=== PATIENT | male | born 1970 | race Caucasian/White ===

== ENCOUNTER 2019-04-04 17:53 | Inpatient (IN) ==
[2019-04-04 19:40] LABS: Basophils % 0.2 %; Hematocrit 24.9 % (37.5-50.1); Immature Granulocytes % 0.6 % (0-4); Lymphocytes # 0.9 K/mcL (0.6-4.6); Lymphocytes % 10.9 %; Mean Corpuscular HGB Conc 32.1 g/dL (31.6-35.5); Mean Corpuscular Hemoglobin 30.9 pg (28.0-33.3); Mean Corpuscular Volume 96.1 fL (83.0-100.0); Mean Platelet Volume 10.4 fL (9.4-12.4); Monocytes # 0.4 K/mcL (0.0-1.3); Monocytes % 4.8 %; Neutrophils # 7.1 K/mcL (1.6-8.9); Platelet Count 216 K/mcL (140-400); Red Blood Count 2.59 M/mcL (4.19-5.50); Red Cell Distribution Width 14.8 % (11.5-14.5); Segmented Neutrophils % 83.5 %; White Blood Count 8.5 K/mcL (4.3-11.1)
[2019-04-04 19:50] LABS: INR 1.6; Prothrombin Time 17.8 Seconds (9.4-12.1)
[2019-04-04 19:53] LABS: Activated Partial Thrombo Time 32.1 Seconds (26.0-36.0)
[2019-04-04 20:01] LABS: Alanine Aminotransferase 55 Units/L (7-52); Albumin 2.5 g/dL (3.5-5.7); Albumin/Globulin Ratio 0.5 (1.1-2.2); Alkaline Phosphatase 90 Units/L (34-104); Aspartate Amino Transferase 31 Units/L (13-39); BUN/Creatinine Ratio 13 (6-26); Bilirubin,Direct 0.1 mg/dL (0.0-0.2); Bilirubin,Indirect 0.2 mg/dL (0.0-1.2); Bilirubin,Total 0.3 mg/dL (0.3-1.0); Blood Urea Nitrogen 14 mg/dL (6-20); Carbon Dioxide 24 mEq/L (23-29); Chloride 99 mEq/L (98-107); Globulin 4.8 g/dL (2.4-3.5); Glucose 145 mg/dL (70-105); Magnesium 1.7 mg/dL (1.6-2.6); Osmolality,Calculated 275 (280-300); Phosphorous 2.3 mg/dL (2.7-4.5); Potassium 3.5 mEq/L (3.5-5.1); Sodium 131 mEq/L (136-145); Total Protein 7.3 g/dL (6.4-8.9); Troponin I < 0.03 ng/mL (< 0.04); eGFR For African Americans > 60 (> 60); eGFR For Non-African Americans > 60 (> 60)
--- NOTE | 2019-04-04 20:37 | Emergency Department Note ---
Disposition Clinical Impression: Endocarditis Qualifiers: Endocarditis type: infective Infective endocarditis organism: bacterial Chronicity: subacute Qualified Code(s): I33.0 - Acute and subacute infective endocarditis Disposition: Admitted As Inpatient Condition: Good Time of Disposition: 20:00 General Adult HPI - General Chief complaint: ED General Medical Stated complaint: Needs antibotic,MRSA Time Seen by Provider: 04/04/19 19:13 Source: patient Limitations: no limitations Nursing Notes Reviewed: Yes Vital Signs Reviewed: Yes - History of Present Illness HPI Narrative: Patient is here because he left his care home at noon for a family birthday libertarian AGAINST MEDICAL ADVICE with some type of interaction with the staff. He went to his family's event that he went back to the care home and they said he was not allowed to the anterior the care home. He was signed out against advice reportedly. He left [facility] yesterday evening at some point at which time he had a last dose of vancomycin to his left arm PICC line which she is being treated for endocarditis. He otherwise feels well at this time he denies fever nausea vomiting diarrhea. His vital signs are table stabilized men tation is normal Onset (ago): hour(s) Pain Scale: 0 Consistency: constant Improves with: nothing Worsens with: nothing Associated symptoms: Reports: denies other symptoms. Denies: chest pain, cough, diaphoresis, malaise, nausea/vomiting - Related Data Home Medications Medication Instructions Recorded Confirmed Escitalopram [Lexapro] 20 mg PO HS 03/18/19 04/04/19 Quetiapine Fumarate [SEROquel] 450 mg PO HS 03/18/19 04/04/19 Alprazolam [Xanax] 1 mg PO 1500 04/04/19 04/04/19 Alprazolam [Xanax] 2 mg PO 0900,2100 04/04/19 04/04/19 BuPROPion SR (12 HR) [Wellbutrin 150 mg PO QAM 04/04/19 04/04/19 SR] Gabapentin [Neurontin] 400 mg PO 0900,1700 04/04/19 04/04/19 Gabapentin [Neurontin] 800 mg PO HS 04/04/19 04/04/19 Allergies Allergy/AdvReac Type Severity Reaction Status Date / Time Buspirone [From BuSpar] Allergy Itching Verified 05/07/15 16:01 codeine Allergy Itching Verified 05/07/15 16:01 infliximab [From Remicade] Allergy See Verified 06/30/15 19:36 Comments methadone [Methadone] Allergy See Verified 06/30/15 19:36 Comments Constitutional: Reports: weakness Eyes: Denies: eye pain, eye discharge, vision change ENT ED: Denies: ear pain, throat pain, dental pain, hearing loss, epistaxis, congestion, dysphagia Cardiovascular: Denies: chest pain, palpitations, dyspnea on exertion, edema, syncope Respiratory: Denies: cough, dyspnea, wheezes, hemoptysis, stridor Gastrointestinal: Denies: abdominal pain, nausea, vomiting, diarrhea, constipation, hematemesis, melena, hematochezia Genitourinary: Denies: urgency, dysuria, frequency, hematuria Musculoskeletal: Denies: back pain, neck pain, arthralgia, myalgia Integumentary: Denies: rash, abrasion, lesions Neurological: Denies: headache, weakness, numbness, paresthesias, confusion, abnormal gait, vertigo Psychiatric: Denies: anxiety, depression, suicidal thoughts, homicidal thoughts, auditory hallucinations, visual hallucinations Endocrine: Denies: fatigue Hematological/Lymphatic: Denies: easy bleeding, easy bruising Allergic/Immunologic: Denies: facial swelling, urticaria Past Medical History - Past Medical History Medical history: Reports: COPD, kidney stones Psychiatric history: Reports: anxiety, depression - Social History Smoking Status: Current every day smoker Alcohol use: Reports: none Drug use: Reports: none Physical Exam - General Limitations: no limitations General appearance: alert - Head Head exam: atraumatic, normocephalic, normal inspection - Eye Eye exam: Present: normal appearance, PERRL, EOMI - Expanded Eye Exam Pupils: Left: reactive - ENT ENT exam: normal exam, normal oropharynx, mucous membranes moist - Expanded ENT Exam External ear exam: Present: normal external inspection Mouth exam: Present: normal external inspection Teeth exam: Present: normal inspection Throat exam: Present: normal inspection - Neck Neck exam: Present: normal inspection, full ROM, trachea midline - Chest Chest inspection: Present: normal inspection, symmetric chest wall rise - Respiratory Respiratory exam: Present: normal lung sounds bilaterally - Cardiovascular Cardiovascular exam: Present: normal rhythm, tachycardia - Abdominal Exam Abdominal exam: Present: soft, Non-Tender. Absent: tenderness, distention, guarding, rebound, rigidity - Extremities Exam Extremities exam: Present: normal inspection, full ROM. Absent: tenderness, pedal edema - Expanded Upper Extremity Exam Shoulder exam: Present: normal inspection, full ROM Arm exam: Present: normal inspection, full ROM Elbow exam: Present: normal inspection, full ROM Forearm/Wrist exam: Present: normal inspection, full ROM Hand exam: Present: normal inspection, full ROM Vascular exam: Normal: capillary refill, radial pulse - Expanded Lower Extremity Exam Hip/Pelvis exam: Present: normal inspection, full ROM Upper leg exam: Present: normal inspection, full ROM Knee exam: Present: normal inspection, full ROM Lower leg exam: Present: normal inspection, full ROM Ankle exam: Present: normal inspection, full ROM Foot/toe exam: Present: normal inspection, full ROM Neurovascular/Tendon exam: Absent: motor deficit, sensory deficit, tendon deficit - Back Exam Back exam: Present: normal inspection, full ROM. Absent: tenderness - Neurological Exam Neurological exam: Present: alert, oriented X3 - Expanded Neurological Exam Patient oriented to: Present: person, place, time Coma Scale Eye Opening: Spontaneous Coma Scale Motor Response: Obeys Commands Coma Scale Verbal Response: Oriented Coma Scale Total: 15 - Psychiatric Psychiatric exam: Present: normal affect, normal mood - Skin Skin exam: Present: warm, dry, intact, normal color Course Course Narrative: I spoke with [facility] at approximately 7:30. They are attempting to contact the physician of record for this patient but the staff was unable to tell me with physician is in the country or out of the country or available to discuss the patient's case with me and determine test were not he will be allowed back to care home. Reportedly he signed out AMA. Medically stable this time. Hemoglobin of 8 is noted and unable to transfer the patient is not aware of his last hemoglobin [facility]. Patient was questioned about his hemoglobin. He does remember the staff at [facility] mentioning something about his blood count being low and they started him on iron. He has had some dark stool since starting his iron. He has no abdominal pain. He has no epigastric pain. He has no vomiting. He does have underlying history of hepatitis C. He does not remember being treated for gastr itis prior in his life Vital Signs Temperature 100.3 F H 04/04/19 18:17 Pulse Rate 116 04/04/19 18:17 Respiratory Rate 18 04/04/19 18:17 Blood Pressure 102/53 04/04/19 18:17 O2 Sat by Pulse Oximetry 97 04/04/19 18:17 Temperature 98.1 F 04/05/19 10:17 Pulse Rate 90 04/05/19 10:17 Respiratory Rate 15 04/05/19 10:17 Blood Pressure 110/52 04/05/19 10:17 O2 Sat by Pulse Oximetry 96 04/05/19 10:17 Oxygen Delivery Oxygen Delivery Room Air Medical Decision Making - Lab Data Result diagrams: 04/05/19 03:49 04/05/19 03:49 Lab Results 04/04/19 04/04/19 04/04/19 Range/Units 19:21 19:21 19:24 WBC 8.5 (4.3-11.1) K/mcL RBC 2.59 L (4.19-5.50) M/mcL Hgb 8.0 L (12.9-16.9) g/dL Hct 24.9 L (37.5-50.1) % MCV 96.1 (83.0-100.0) fL MCH 30.9 (28.0-33.3) pg MCHC 32.1 (31.6-35.5) g/dL RDW 14.8 H (11.5-14.5) % Plt Count 216 (140-400) K/mcL MPV 10.4 (9.4-12.4) fL Immature Gran % 0.6 (0-4) % Seg Neutrophils % 83.5 % Lymphocytes % 10.9 % Monocytes % 4.8 % Eosinophils % 0.0 % Basophils % 0.2 % Neutrophils # 7.1 (1.6-8.9) K/mcL Lymphocytes # 0.9 (0.6-4.6) K/mcL Monocytes # 0.4 (0.0-1.3) K/mcL Eosinophils # 0.0 (0.0-0.6) K/mcL Basophils # 0.0 (0.0-0.2) K/mcL PT 17.8 H (9.4-12.1) Seconds INR 1.6 APTT 32.1 (26.0-36.0) Seconds Sodium 131 L (136-145) mEq/L Potassium 3.5 (3.5-5.1) mEq/L Chloride 99 (98-107) mEq/L Carbon Dioxide 24 (23-29) mEq/L BUN 14 (6-20) mg/dL Creatinine 1.09 (0.70-1.30) mg/dL Est GFR ( Amer) > 60 (> 60) Est GFR (Non-Af Amer) > 60 (> 60) BUN/Creatinine Ratio 13 (6-26) Glucose 145 H (70-105) mg/dL Calculated Osmolality 275 L (280-300) Lactic Acid (0.5-2.2) mmol/L Calcium 8.0 L (8.6-10.3) mg/dL Phosphorus 2.3 L (2.7-4.5) mg/dL Magnesium 1.7 (1.6-2.6) mg/dL Total Bilirubin 0.3 (0.3-1.0) mg/dL Direct Bilirubin 0.1 (0.0-0.2) mg/dL Indirect Bilirubin 0.2 (0.0-1.2) mg/dL AST 31 (13-39) Units/L ALT 55 H (7-52) Units/L Alkaline Phosphatase 90 (34-104) Units/L Troponin I < 0.03 (< 0.04) ng/mL Serum Total Protein 7.3 (6.4-8.9) g/dL Albumin 2.5 L (3.5-5.7) g/dL Globulin 4.8 H (2.4-3.5) g/dL Albumin/Globulin Ratio 0.5 L (1.1-2.2) 04/04/19 Range/Units 19:24 WBC (4.3-11.1) K/mcL RBC (4.19-5.50) M/mcL Hgb (12.9-16.9) g/dL Hct (37.5-50.1) % MCV (83.0-100.0) fL MCH (28.0-33.3) pg MCHC (31.6-35.5) g/dL RDW (11.5-14.5) % Plt Count (140-400) K/mcL MPV (9.4-12.4) fL Immature Gran % (0-4) % Seg Neutrophils % % Lymphocytes % % Monocytes % % Eosinophils % % Basophils % % Neutrophils # (1.6-8.9) K/mcL Lymphocytes # (0.6-4.6) K/mcL Monocytes # (0.0-1.3) K/mcL Eosinophils # (0.0-0.6) K/mcL Basophils # (0.0-0.2) K/mcL PT (9.4-12.1) Seconds INR APTT (26.0-36.0) Seconds Sodium (136-145) mEq/L Potassium (3.5-5.1) mEq/L Chloride (98-107) mEq/L Carbon Dioxide (23-29) mEq/L BUN (6-20) mg/dL Creatinine (0.70-1.30) mg/dL Est GFR ( Amer) (> 60) Est GFR (Non-Af Amer) (> 60) BUN/Creatinine Ratio (6-26) Glucose (70-105) mg/dL Calculated Osmolality (280-300) Lactic Acid 1.8 (0.5-2.2) mmol/L Calcium (8.6-10.3) mg/dL Phosphorus (2.7-4.5) mg/dL Magnesium (1.6-2.6) mg/dL Total Bilirubin (0.3-1.0) mg/dL Direct Bilirubin (0.0-0.2) mg/dL Indirect Bilirubin (0.0-1.2) mg/dL AST (13-39) Units/L ALT (7-52) Units/L Alkaline Phosphatase (34-104) Units/L Troponin I (< 0.04) ng/mL Serum Total Protein (6.4-8.9) g/dL Albumin (3.5-5.7) g/dL Globulin (2.4-3.5) g/dL Albumin/Globulin Ratio (1.1-2.2)
[2019-04-04] MEDS ORDERED: Pantoprazole 40 MG VIAL IVP ONE (21:05)
[2019-04-05] MEDS ORDERED: *HR* Norepinephrine 4 MG/4 ML VIAL IVC ONE (00:19)
[2019-04-05] MEDS ORDERED: Aminoglycoside Consult 1 EACH MC ONE (00:19)
[2019-04-05] MEDS ORDERED: D5% in Water 250 ML IV BAG IV ONE (00:19)
[2019-04-05 00:42] LABS: Amphetamine Screen,Urine Negative ng/mL (Cutoff=1000); Barbiturate Screen,Urine Negative ng/mL (Cutoff=200); Benzodiazepines Screen,Urine Negative ng/mL (Cutoff=200); Cannabinoid Screen,Urine Negative ng/mL (Cutoff = 50); Cocaine Screen,Urine Negative ng/mL (Cutoff= 300); Opiate Screen,Urine Negative ng/mL (Cutoff=300); Phencyclidine Screen,Urine Negative ng/mL (Cutoff=25)
[2019-04-05] MEDS ORDERED: Acetaminophen 325 MG TABLET PO ONE (02:17)
[2019-04-05] MEDS ORDERED: Acetaminophen 325 MG TABLET PO PRN (02:40)
[2019-04-05] MEDS ORDERED: *HR* Promethazine 25 MG/ML VIAL IVP PRN (02:40)
[2019-04-05] MEDS ORDERED: Naloxone 0.4 MG/ML INJ IVP PRN (02:40)
[2019-04-05] MEDS: 0.9 % Sodium Chloride 1,000 ML IVC SCH ×2 (03:52→17:12)
[2019-04-05 04:16] LABS: Basophils % 0.3 %; Eosinophils % 0.3 %; Hematocrit 23.2 % (37.5-50.1); Hemoglobin 7.6 g/dL (12.9-16.9); Immature Granulocytes % 0.4 % (0-4); Lymphocytes # 0.8 K/mcL (0.6-4.6); Lymphocytes % 11.7 %; Mean Corpuscular HGB Conc 32.8 g/dL (31.6-35.5); Mean Corpuscular Hemoglobin 31.4 pg (28.0-33.3); Mean Corpuscular Volume 95.9 fL (83.0-100.0); Mean Platelet Volume 10.2 fL (9.4-12.4); Monocytes # 0.5 K/mcL (0.0-1.3); Monocytes % 6.7 %; Neutrophils # 5.7 K/mcL (1.6-8.9); Platelet Count 218 K/mcL (140-400); Red Blood Count 2.42 M/mcL (4.19-5.50); Red Cell Distribution Width 14.7 % (11.5-14.5); Segmented Neutrophils % 80.6 %
[2019-04-05 04:31] LABS: Alanine Aminotransferase 55 Units/L (7-52); Albumin 2.2 g/dL (3.5-5.7); Albumin/Globulin Ratio 0.5 (1.1-2.2); Alkaline Phosphatase 90 Units/L (34-104); Aspartate Amino Transferase 35 Units/L (13-39); BUN/Creatinine Ratio 14 (6-26); Bilirubin,Total 0.3 mg/dL (0.3-1.0); Blood Urea Nitrogen 14 mg/dL (6-20); Calcium 7.8 mg/dL (8.6-10.3); Carbon Dioxide 24 mEq/L (23-29); Chloride 101 mEq/L (98-107); Globulin 4.5 g/dL (2.4-3.5); Glucose 115 mg/dL (70-105); Magnesium 1.6 mg/dL (1.6-2.6); Osmolality,Calculated 273 (280-300); Potassium 3.3 mEq/L (3.5-5.1); Sodium 131 mEq/L (136-145); Total Protein 6.7 g/dL (6.4-8.9); eGFR For African Americans > 60 (> 60); eGFR For Non-African Americans > 60 (> 60)
--- NOTE | 2019-04-05 04:31 | Internal Med History&Physical ---
Date of Encounter: 04/05/19 Time of Encounter: 02:05 Internal Medicine - H&P: HPI Chief complaint: endocarditis Admitted From: Emergency Dept Plans for Post Hospital Care: Transfer Long Term Facility History of present illness: Mr. Yancey is a 48 year old [facility] and need for ongoing treatment. He was recently discharged from [facility] in [place] just a few days ago. He was discharged to a local [facility] where he signed out from [facility] AGAINST MEDICAL ADVICE just yesterday. He returned to [facility] today trying to be readmitted there. However, he was turned away and recommended to go to ER because he signed out AMA and need ongoing medical care. He therefore came to ER where he was seen and evaluated for ongoing care of his endocarditis. Upon my assessment of the patient on the floor, he spiked a fever and was having active rigors and chills. He denies any chest pain, shortness of breath, but he has had some nausea and vomiting. He denies any hemoptysis, wheezing, productive cough, or any significant chest pain. He has been on vancomycin for last couple weeks for his endocarditis. Unfortunately, I do not have any records from [place]. Presently, patient appears ill but nontoxic. 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 He states he does not take any active drugs now. Past Med Surg Social Fam HX - Past Medical History Attestation: Yes The following information was validated with the patient. Source: patient, old records reviewed (very limited old records) Medical history: COPD, kidney stones Additional medical history: MRSA, pericarditis, IV drug use Psychiatric history: anxiety, depression - Past Surgical History Additional surgical history: back surg - Social History Smoking Status: Current every day smoker Packs per day: 1/2 Smokeless Tobacco Status: No Alcohol use: none Drug use: opiates, IV Drug Use Current living situation: [facility] Activity Level: Independent ambulation - Family History Mother History Unknown: Yes Father History Unknown: Yes Internal Medicine - H&P: Meds Escitalopram [Lexapro] 20 mg PO HS 03/18/19 [History] Quetiapine Fumarate [SEROquel] 450 mg PO HS 03/18/19 [History] Alprazolam [Xanax] 1 mg PO 1500 04/04/19 [History] Alprazolam [Xanax] 2 mg PO 0900,2100 04/04/19 [History] BuPROPion SR (12 HR) [Wellbutrin SR] 150 mg PO QAM 04/04/19 [History] Gabapentin [Neurontin] 400 mg PO 0900,1700 04/04/19 [History] Gabapentin [Neurontin] 800 mg PO HS 04/04/19 [History] Allergy/AdvReac Type Severity Reaction Status Date / Time Buspirone [From BuSpar] Allergy Itching Verified 05/07/15 16:01 codeine Allergy Itching Verified 05/07/15 16:01 infliximab [From Remicade] Allergy See Verified 06/30/15 19:36 Comments methadone [Methadone] Allergy See Verified 06/30/15 19:36 Comments - Constitutional Constitutional: chills, fatigue, fever(s), no night sweats - EENT Eyes: no blurry vision, no change in vision Ears: no ear pain, no tinnitus Nose, mouth and throat: no nasal congestion, no sinus pressure, no sore throat - Cardiovascular Cardiovascular ROS IM: chest pain, no dyspnea, no dyspnea on exertion, no orthopnea, no paroxysmal nocturnal dyspnea - Respiratory Respiratory: no cough, no hemoptysis, no chest congestion, no excessive phlegm production, no change in phlegm color - Gastrointestinal Gastrointestinal: heartburn, nausea, vomiting, no abdominal pain, no diarrhea, no hematemesis, no hematochezia, no melena - Genitourinary Genitourinary ROS male: no dysuria, no flank pain, no hematuria - Musculoskeletal Musculoskeletal ROS IM: no arthralgias, no back pain - Integumentary Integumentary IM: no rash, no jaundice - Neurological Neurological ROS: no disequilibrium, no dizziness, no focal weakness, no frequent falls, no headache(s) - Psychiatric Psychiatric: no anxiety, no depression - Endocrine Endocrine IM: no cold intolerance, no heat intolerance, no polydipsia, no polyuria - Allergic/Immunologic Allergic/Immunologic: no wheezing, no GI upset with certain foods - Constitutional Vitals: Temp Pulse Resp BP Pulse Ox 100.3 F H 114 18 111/62 95 04/05/19 02:07 04/05/19 02:07 04/05/19 02:07 04/05/19 02:07 04/05/19 02:07 General appearance: Present: cachectic, cooperative, A&O X 3, answers questions appropriately Exam: acutely ill; non-toxic - Head Head exam: Present: atraumatic, normal inspection - Eye Eye exam: Present: EOMI, PERRL. Absent: scleral icterus Pupils: Present: normal accommodation - ENT ENT exam: Present: mucous membranes dry, normal exam, normal oropharynx Additional comments: edentulous - Neck Neck exam general surgery: Present: full ROM, supple, trachea midline. Absent: lymphadenopathy, tenderness, nuchal rigidity, thyromegaly - Respiratory Respiratory exam: Present: CTAB. Absent: chest wall tenderness, rales, respiratory distress, rhonchi, wheezes - Cardiovascular Cardiovascular exam: Present: RRR, +S1, +S2, systolic murmur. Absent: diastolic murmur - GI/Abdominal GI/Abdominal exam: Present: normal bowel sounds, soft. Absent: guarding, hepatomegaly, mass, rebound, splenomegaly - Extremities Exam Extremities exam: Present: full ROM, warm. Absent: calf tenderness, joint swelling, pedal edema, tenderness - Back Exam Back exam: Absent: CVA tenderness (L), CVA tenderness (R) - Neurological Exam Neurological exam: Present: alert, CN II-XII intact, oriented X3, no focal deficits, strengths equal and symetr throughout - Psychiatric Psychiatric exam: Present: normal affect, normal mood - Skin Skin exam: Present: dry, intact, warm. Absent: abrasion Internal Med - H&P Results - Labs CBC & Chem 7: 04/04/19 19:21 04/04/19 19:21 Labs: Short CBC 04/04/19 Range/Units 19:21 WBC 8.5 (4.3-11.1) K/mcL Hgb 8.0 L (12.9-16.9) g/dL Hct 24.9 L (37.5-50.1) % Plt Count 216 (140-400) K/mcL Neutrophils # 7.1 (1.6-8.9) K/mcL BMP 04/04/19 19:21 Sodium 131 L Potassium 3.5 Chloride 99 Carbon Dioxide 24 BUN 14 Creatinine 1.09 Glucose 145 H Calcium 8.0 L Cardiac Enzymes 04/04/19 Range/Units 19:21 Troponin I < 0.03 (< 0.04) ng/mL Liver Function 04/04/19 Range/Units 19:21 Total Bilirubin 0.3 (0.3-1.0) mg/dL Direct Bilirubin 0.1 (0.0-0.2) mg/dL AST 31 (13-39) Units/L ALT 55 H (7-52) Units/L Alkaline Phosphatase 90 (34-104) Units/L Albumin 2.5 L (3.5-5.7) g/dL - EKG Data -: EKG Interpreted by Myself - EKG Data Prior EKG available for review: no EKG comments: 04/05/19 04:43 Sinus tachycardia with no acute changes - Assessment and Plan (1) Endocarditis Current Visit: Yes Status: Acute Assessment and plan: 1. Blood cultures orderd. 2. Vancomycin and Zosyn ordered to be scheduled. 3. ECHO ordered. 4. Monitor on telemetry. 5. Request for old records from [facility]. Qualifiers: Endocarditis type: infective Infective endocarditis organism: bacterial Chronicity: subacute Qualified Code(s): I33.0 - Acute and subacute infective endocarditis (2) Anemia Current Visit: Yes Status: Acute Assessment and plan: 1. FOBT ordered. 2. Iron studies ordered -- suspect GI blood loss. 3. Consult GI for EGD. 4. Monitor H/H and transfuse PRN. Qualifiers: Anemia type: unspecified type Qualified Code(s): D64.9 - Anemia, unspecified (3) DVT prophylaxis Current Visit: Yes Status: Acute Assessment and plan: 1. Heparin SQ.
[2019-04-05 04:35] LABS: INR 1.5; Prothrombin Time 17.5 Seconds (9.4-12.1)
[2019-04-05 04:38] LABS: Activated Partial Thrombo Time 31.6 Seconds (26.0-36.0)
[2019-04-05] MEDS: Pantoprazole 40 MG VIAL IVP SCH ×2 (05:45→17:10)
[2019-04-05] MEDS ORDERED: *HR* Heparin 5,000 UNIT/ML VIAL SQ SCH (06:00)
[2019-04-05 06:39] LABS: Troponin I < 0.03 ng/mL (< 0.04)
[2019-04-05 06:48] LABS: Iron < 10 mcg/dL (65-175); Transferrin 135 mg/dL (203-362)
[2019-04-05] MEDS ORDERED: BuPROPion SR (12 HR) 150 MG TABLET PO SCH (09:00)
[2019-04-05] MEDS: Gabapentin 400 MG CAPSULE PO SCH ×2 (09:16→17:10)
[2019-04-05] MEDS: Piperacillin/Tazobactam 3.375 GM in 0.9 % Sodium Chloride Mini Bag 100 ML IVPB SCH ×2 (09:18→17:10)
[2019-04-05] MEDS: ALPRAZolam 1 MG TABLET PO SCH (09:35)
--- NOTE | 2019-04-05 14:05 | Infectious Disease Consult ---
Infectious Disease-Consult - Encounter Date/Time Date of Encounter: 04/05/19 Time of Encounter: 12:45 - Data of Consult Patient: new to practice Reason for consult: Endocarditis Consult date: 04/05/19 Requesting Physician: Zeferino Armstrong Primary Care Provider: Vasile Maguire HPI: Mr. Myers is a 48-year-old male with a past medical history of COPD, kidney stones, MRSA bacteremia, and endocarditis. He was admitted to the hospital 04/04/19 for endocarditis. We are consulted 04/05/19 for further workup and treatment recommendations for endocarditis. Briefly, the patient is a 48-year-old male with past medical history as stated above. The patient presented to the [facility] emergency department back on March 18 and was diagnosed with MRSA bacteremia. He was subsequently transferred to [facility] where he remained hospitalized. The details of his hospitalization are unclear as we do not have any records and the patient is unclear as well. I was able to call the microbiology lab at [facility] who tells me that his first set of negative blood cultures were not on 03/26/19. Apparently, he was discharged to a local extended care facility to complete his course of IV antibiotics. He states that he [place] the [place] [facility] to go to a families birthday green party and when he came back he was told he was not allowed to return so he presented to the ER for evaluation. He states that he had been told he was supposed to be off his IV vancomycin for a day due to an elevated medication level so he actually did not miss any doses. Upon arrival to the ER, he was tachycardic. Had a low-grade temperature 100.3. WBC was normal. LFTs and troponin were negative. He was started on vancomycin and Zosyn and admitted to the hospital for further evaluation. Since admission, the patient has had a MAXIMUM TEMPERATURE of 100.3. He is still intermittent tachycardic WBC and renal function remained normal. Blood cultures were obtained 2 sets are pending. He is scheduled to undergo a transthoracic echocardiogram later today. Urine drug screen was negative. Currently, the patient is on vancomycin and Zosyn. We have been asked to evaluate and make further recommendations. During my exam today, the patient is somewhat of a poor historian regarding the events of his hospitalization at [facility]. He is telling me that he was afebrile until yesterday when he came back to the hospital. He denies any fevers or chills. Denies headache, neck pain, or stiffness. Denies chest pain, shortness of breath, or cough. Denies nausea, vomiting, diarrhea, or constipation. Denies abdominal pain or urinary complaints. Denies oral thrush or skin rashes. States he has not done any drugs since before coming to the hospital in February. The patient normally lives at home with his family. He smokes about a pack of cigarettes per day. Denies alcohol use. States she was previously using IV heroin and sharing needles regularly. He states he is known hep C positive. Denies other than chronic infectious diseases. Denies recent travel outside the [facility]. - ROS Review of Systems: All systems reviewed and no additional remarkable complaints except as stated. - Results CBC & Chem 7: 04/05/19 20:45 04/05/19 20:45 - Exam Vitals: Temp Pulse Resp BP Pulse Ox 98.1 F 90 15 110/52 96 04/05/19 10:17 04/05/19 10:17 04/05/19 10:17 04/05/19 10:17 04/05/19 10:17 Exam: Head: Atraumatic, normal inspection, normocephalic. Eye: EOMI, PERRLA, no scleral icterus noted. No subconjunctival hemorrhage noted. ENT: Mucous membranes moist. No odontogenic infection noted. Neck: Normal inspection, no meningismus. Respiratory: Clear to auscultation. No rales, respiratory distress, rhonchi, or wheezes noted. Cardiovascular: Regular rhythm, tachycardic, S1 and S2 audible. No rubs or gallops. Murmur noted. GI: Soft, nondistended, normal bowel sounds. Extremities: No joint swelling, pedal edema, or tenderness noted. Back: Normal inspection. No vertebral tenderness noted. Neurological: Alert, oriented 3, no focal deficits. Psychiatric: normal affect, normal mood. Skin: Dry, intact, warm. Normal color. No rashes. No endocarditis stigmata noted. Escitalopram [Lexapro] 20 mg PO HS 03/18/19 [History] Quetiapine Fumarate [SEROquel] 450 mg PO HS 03/18/19 [History] Alprazolam [Xanax] 1 mg PO 1500 04/04/19 [History] Alprazolam [Xanax] 2 mg PO 0900,2100 04/04/19 [History] BuPROPion SR (12 HR) [Wellbutrin SR] 150 mg PO QAM 04/04/19 [History] Gabapentin [Neurontin] 400 mg PO 0900,1700 04/04/19 [History] Gabapentin [Neurontin] 800 mg PO HS 04/04/19 [History] Allergy/AdvReac Type Severity Reaction Status Date / Time Buspirone [From BuSpar] Allergy Itching Verified 05/07/15 16:01 codeine Allergy Itching Verified 05/07/15 16:01 infliximab [From Remicade] Allergy See Verified 06/30/15 19:36 Comments methadone [Methadone] Allergy See Verified 06/30/15 19:36 Comments - Assessment and Plan (1) Sepsis Current Visit: Yes Status: Acute The patient has two SIRS criteria. Etiology unclear. Likely endocarditis, but concern for additional sources as well. WBC normal. Continues to have tachycardia and intermittent fevers (Tmax 100.3). Blood cultures drawn 04/05/19 are pending x 2 sets. Currently on Vanc and Zosyn. Qualifiers: Sepsis type: sepsis due to unspecified organism Qualified Code(s): A41.9 - Sepsis, unspecified organism SNOMED Code(s): 10823351 (2) Endocarditis Current Visit: Yes Status: Acute Exact details unclear. Diagnosed at [facility]. Causative organism: MRSA. [facility] with [facility], but left AMA. Patient states he was told he didn't need any for a day because his levels were high, but not sure how accurate this is. Will ask nursing to request records from [facility]. Currently on Vanc and Zosyn. Qualifiers: Endocarditis type: infective Infective endocarditis organism: bacterial Chronicity: subacute Qualified Code(s): I33.0 - Acute and subacute infective endocarditis SNOMED Code(s): 90255364 (3) Anemia Current Visit: Yes Status: Acute Etiology unclear. Hgb 8 on admission, down to 7.6 this morning. Further workup and management per the primary team. Qualifiers: Anemia type: unspecified type Qualified Code(s): D64.9 - Anemia, unspecified SNOMED Code(s): 775866835 (4) H/O intravenous drug use in remission Current Visit: Yes Status: Acute Reports history of Heroine use with sharing needles. Known history of Hepatitis C. Will check HIV and Hep B serologies. SNOMED Code(s): 03861331144533138, 41943804218145201 - Recommendations Recommendations: Review of systems negative for additional infectious source. Await blood cultures to finalize. Request records from [facility]. Anemia workup and treatment per the primary team Continue Vancomycin IV. Pharmacy to dose. Goal trough ~15. Dosing discussed with Charly Schreiber. Planning to get trough tonight before 2100 dose to see where we are with vanc levels. Continue Zosyn 3.375 grams IV Q8H. Duration of treatment depends on the clinical picture. Monitor renal function and for drug toxicity and dose-adjust antibiotics. Past Med Surg Social Fam HX - Past Medical History Attestation: Yes The following information was validated with the patient. Source: patient, old records reviewed, nursing notes reviewed Medical history: COPD, kidney stones Additional medical history: MRSA, pericarditis, IV drug use Psychiatric history: anxiety, depression - Past Surgical History Additional surgical history: back surg - Social History Smoking Status: Current every day smoker Packs per day: 1/2 Smokeless Tobacco Status: No Alcohol use: none Drug use: opiates, IV Drug Use Occupational status: unemployed Current living situation: Home, With Family Activity Level: Independent ambulation Recent Out of Country Travel Within the Last 8 Weeks: No Exposure or Possible Exposure to Illness During Travel: No - Family History Mother History Unknown: Yes Father History Unknown: Yes Consult Discharge Plan - Plan Referrals: Johana Skelton DO [Primary Care Provider] - - Attending Attestation I have personally performed a face to face evaluation on this patient. I have reviewed and agree with the care plan. History and Exam by me shows: This is an addendum to initial report dictated by Ashley Mary CNP, please refer to Ashley's note for full details. Agree with above HIP, ROS and PE findings. Assessment and Plan: 1. Sepsis 2. Endocarditis with MRSA (not sure which valve, will ask for records) 3. AMS 4. H/O IVDU 5. Serratia Bacteremia 6. pulmonary consildation/pneumonia 7. ACS 8. Severe pulmonary HTN Recommendations: continue vancomycin; requested vanc level; goal vancomycin trough around 20 stop zosyn start meropenem monitor labs await cardiology recommendations await pulmonary and CTS recommendations
[2019-04-05] MEDS ORDERED: ALPRAZolam 1 MG TABLET PO SCH (15:00)
[2019-04-05] MEDS ORDERED: 0.9 % Sodium Chloride 500 ML IVC ONE (16:20)
[2019-04-05 16:21] LABS: Hematocrit 25.7 % (37.5-50.1); Hemoglobin 8.2 g/dL (12.9-16.9)
[2019-04-05] MEDS ORDERED: Nitroglycerin 0.4 MG TAB.SUBL SL ONE (16:26)
[2019-04-05 17:58] LABS: Acinetobacter baumannii by PCR Not Detected (Not Detect); Enterococcus by PCR Not Detected (Not Detect); Staphylococcus aureus by PCR Not Detected (Not Detect); Staphylococcus by PCR Not Detected (Not Detect); Streptococcus agalactiae(B)PCR Not Detected (Not Detect); Streptococcus by PCR Not Detected (Not Detect); Streptococcus pneumoniae PCR Not Detected (Not Detect); Streptococcus pyogenes (A) PCR Not Detected (Not Detect); blaKPC Carbapenem-Resist Gene Not Detected (Not Detect); mecA Methicillin-Resist Gene Not Detected (Not Detect); vanA/B Vancomycin-Resist Genes Not Detected (Not Detect)
[2019-04-05 17:59] LABS: Candida albicans by PCR Not Detected (Not Detect); Candida glabrata by PCR Not Detected (Not Detect); Candida krusei by PCR Not Detected (Not Detect); Candida parapsilosis by PCR Not Detected (Not Detect); Candida tropicalis by PCR Not Detected (Not Detect); Enterobacter cloacae Cmplx PCR Not Detected (Not Detect); Escherichia coli by PCR Not Detected (Not Detect); Klebsiella oxytoca by PCR Not Detected (Not Detect); Klebsiella pneumoniae by PCR Not Detected (Not Detect); Proteus by PCR Not Detected (Not Detect); Pseudomonas aeruginosa by PCR Not Detected (Not Detect); Serratia marcescens by PCR DETECTED (Not Detect)
[2019-04-05] MEDS ORDERED: SODIUM CHLORIDE MINI 0.9% IVP SCH ×2 (18:09→18:50)
[2019-04-05] MEDS ORDERED: MEROPENEM IVP SCH ×2 (18:09→18:50)
[2019-04-05] MEDS ORDERED: Isovue-370 500 ML BOTTLE IVP ONE ×3 (18:50→22:18)
--- NOTE | 2019-04-05 19:19 | Event Note ---
Date of Encounter: 04/05/19 Time of Encounter: 11:00 Patient was admitted to the hospital due to history of endocarditis after he left his halfway AMA for a birthday republican in his halfway discharge him and would not accept him. Patient has finished 2 weeks of treatment with IV vancomycin however/for him. Blood cultures grew Serratia and infectious disease was consulted and they recommended meropenem along with vancomycin awaiting results of the blood cultures. This afternoon, patient developed substernal chest pain with tachycardia and hypertension. 500 ml bolus was given with significant improvement in his blood pressure. EKG was done as well and showed ST depression in the lateral leads, this was discussed with Dr. Nagy over the phone who said that this is C depression is secondary to his tachycardia. EKG done 30 minutes later showed improvement and utilization of his ST depression. First troponin was negative, second troponin is at 10 PM. Patient also has tachypnea and he was placed on 4 L of oxygen due to hypoxia. D-dimer was checked and it was elevated. CT chest with contrast is ordered and the results are pending. Sounds was given to the night team. Suspicion is high for PE versus pulmonary embolism. Regarding his anemia, patient had no signs of bleeding. His hemoglobin improved slightly from admission. FOBT is still pending.
[2019-04-05] MEDS ORDERED: Norepinephrine 4 MG in D5% in Water 250 ML IVC SCH (20:30)
[2019-04-05] MEDS ORDERED: Gabapentin 400 MG CAPSULE PO SCH (21:00)
--- NOTE | 2019-04-05 21:01 | Event Note ---
Date of Encounter: 04/06/19 Time of Encounter: 20:55 Rapid Response called at approximately 1945. Patient was hypotensive with decreased mental status. Patient was assess and was able to answer questions, was AOx2 which was decreased from presentation. Vitals shows tachycardia in 110s and BP of 70s/40s taken manually. Patient had received fluid bolus of 500 mL earlier in the day which reportedly did help. Normal saline was running at 999/hr however blood pressure not improved after recheck. Levophed was ordered and patient will be transferred to ICU. Patient has PICC in place already. Repeat labs ordered. Update: received report from custodial officer documentation coordinator who read his echocardiogram showing severe/complete aortic insufficiency due to vegetation and instruction of leaflet. Trainman recommended transfer to tertiary care center as soon as possible. Resuscitative measures were pursued including transfusion of packed red blood cells, vasopressors. I did speak to our on-call cardiothoracic surgeon who recommended changing from levophed to epinephrine to decrease vascular resistance. We did contact multiple tertiary centers requesting transfer, please see discharge summary of same date. CTA dissection study was also obtained, please see separate report. Patient will be transferred to [facility].
[2019-04-05 21:16] LABS: Basophils % 0.1 %; Eosinophils % 0.1 %; Hematocrit 22.3 % (37.5-50.1); Hematocrit 22.6 % (37.5-50.1); Hemoglobin 7.1 g/dL (12.9-16.9); Hemoglobin 7.2 g/dL (12.9-16.9); Immature Granulocytes % 0.6 % (0-4); Lymphocytes % 9.1 %; Mean Corpuscular HGB Conc 31.8 g/dL (31.6-35.5); Mean Corpuscular Hemoglobin 31.4 pg (28.0-33.3); Mean Corpuscular Volume 98.7 fL (83.0-100.0); Mean Platelet Volume 10.3 fL (9.4-12.4); Monocytes # 0.6 K/mcL (0.0-1.3); Monocytes % 5.7 %; Platelet Count 199 K/mcL (140-400); Red Blood Count 2.26 M/mcL (4.19-5.50); Segmented Neutrophils % 84.4 %
[2019-04-05 21:20] LABS: White Blood Count 10.6 K/mcL (4.3-11.1)
[2019-04-05] MEDS ORDERED: 0.9 % Sodium Chloride 1,000 ML IVC ONE (21:21)
[2019-04-05 21:41] LABS: Chloride 106 mEq/L (98-107); Potassium 3.8 mEq/L (3.5-5.1); Sodium 133 mEq/L (136-145); Troponin I 7.85 ng/mL (< 0.04)
[2019-04-05 21:57] LABS: Alanine Aminotransferase 52 Units/L (7-52); Albumin/Globulin Ratio 0.5 (1.1-2.2); Alkaline Phosphatase 86 Units/L (34-104); Aspartate Amino Transferase 86 Units/L (13-39); BUN/Creatinine Ratio 13 (6-26); Bilirubin,Total 0.4 mg/dL (0.3-1.0); Blood Urea Nitrogen 15 mg/dL (6-20); Calcium 7.4 mg/dL (8.6-10.3); Carbon Dioxide 21 mEq/L (23-29); Glucose 124 mg/dL (70-105); Osmolality,Calculated 276 (280-300); eGFR For African Americans > 60 (> 60); eGFR For Non-African Americans > 60 (> 60)
--- NOTE | 2019-04-05 22:10 | Event Note ---
Date of Encounter: 04/05/19 Time of Encounter: 21:40 - Cardiology Event Note STAT echo read Evidence of aortic vegetation, leaflet destruction with severe aortic regurgitation. Cannot rule out ascending aortic dissection. EF 60%. RV function normal. Moderate bi-atrial enlargement. Moderate MR and TR Severe pulmonary hypertension. Please refer to formal report. Recommend transfer to tertiary center [facility]. ICU team notified. Please ask Echo lab for echo CD with transfer.
[2019-04-05] MEDS ORDERED: FentaNYL (PF) 1,000 MCG in 0.9 % Sodium Chloride 80 ML IVC SCH (22:30)
[2019-04-05] MEDS ORDERED: 0.9 % Sodium Chloride 1,000 ML ONE (22:40)
[2019-04-05] MEDS ORDERED: EPINEPHrine 1 MG in D5% in Water 250 ML IVC SCH (23:00)
--- NOTE | 2019-04-05 23:09 | Procedure Note ---
Date of procedure: 04/05/19 Pre-op diagnosis: respiratory failure Post-op diagnosis: same Procedure: Procedure: Endotracheal intubation Date: 04/05/19 Time: 2100 Adviser Sales: Emily Attending: Bartolo Indication: Respiratory failure The patient was placed in supine position. All equipment was checked and operational before beginning the procedure. Sedation was obtained using etomidate 20 mg, Versed 5 mg. The patient was easily ventilated using an Ambu bag. There are laryngoscope using a c-blade glidoscope was inserted into the oropharynx at which time a grade 1 view of the vocal cords was visualized. A 7.5 Swedish endotracheal tube was inserted and visualized going through the cords. The stylet was removed. Colorimetric change was visualized on the CO2 meter. Breath sounds were heard in both lung stafford. There were no breast breath sounds auscultated over the stomach. The endotracheal tube was placed at 24 cm at the lip line. Attending physician was in attendance throughout the entirety of the procedures. CT dissection study was ordered in place of CXR to assess for pneumothorax The patient tolerated the procedure well without desaturation or hemodynamic compromise. Anesthesia: IV sedation Surgeon: Howie Diaz Was there an hospital aides and assistants teacher present: No Estimated blood loss (cc): 0 Specimen: none Pathology: none sent Condition: critical Disposition: ICU
--- NOTE | 2019-04-05 23:40 | Discharge Summary ---
Orders not resulted at time of discharge: Pending orders 04/05/19 02:05 EKG [ECG 12 lead ECG] [ECG] Stat 04/05/19 03:49 Culture,Blood [BC] Stat PLASMA [BBK] Stat Red Blood Cells [BBK] Stat Type and Screen [BBK] Stat 04/05/19 04:45 Occult Blood,Stool [BF] Routine 04/05/19 06:00 ECG 12 lead ECG [ECG] AM 0600 04/05/19 16:00 Culture,Blood [BC] Routine 04/05/19 16:10 EKG [ECG 12 lead ECG] [ECG] Stat 04/05/19 17:00 EKG [ECG 12 lead ECG] [ECG] Routine 04/05/19 20:18 ABG [Arterial Blood Gas] Stat 04/05/19 22:18 CT CTA Dissection Study [CT] Urgent 04/06/19 04:00 Hemoglobin and Hematocrit [HEME] Q8H 04/06/19 12:00 Hemoglobin and Hematocrit [HEME] Q8H 04/06/19 20:00 Hemoglobin and Hematocrit [HEME] Q8H 04/07/19 04:00 Hemoglobin and Hematocrit [HEME] Q8H 04/07/19 12:00 Hemoglobin and Hematocrit [HEME] Q8H 04/07/19 20:00 Hemoglobin and Hematocrit [HEME] Q8H Date of Encounter: 04/05/19 Time of Encounter: 23:37 - Discharge Diagnosis (1) Ascending aortic aneurysm Priority: Primary Status: Suspected Assessment and Plan: 1. Patient accepted in transfer to [facility] -- Dr. Stevens (CT Surgery). 2. Awaiting air transport to [facility]. (2) Endocarditis Priority: Secondary Status: Acute Assessment and Plan: 1. Continue IV antibiotics -- Vancomycin and Meropenem. 2. Cardiology and CT surgery consultation for concern of need for AVR and dissecting aortic aneurysm. Qualifiers: Endocarditis type: infective Infective endocarditis organism: bacterial Chronicity: subacute Qualified Code(s): I33.0 - Acute and subacute infective endocarditis (3) Anemia Priority: Secondary Status: Acute Assessment and Plan: 1. Patient receiving PRBC's and trauma blood available. 2. Awaiting air transport to [facility] for STAT CT surgery evaluation. Qualifiers: Anemia type: unspecified type Qualified Code(s): D64.9 - Anemia, unspecified Hospital course: Mr. Yancey is a 48 year old male who was admitted last night after patient signed out AMA from his ECF. He was recently discharged from [facility] after being treated for endocarditis. He was discharged to [facility] for ongoing IV antibiotics. Once he arrived to the ECF, he signed out AMA so he can attend a birthday alliance party of a friend/family member. Once he returned to the ECF, they would not accept him back. He therefore came to our ER last night for ongoing treatment of his endocarditis and for coordination of discharge to find another ECF. This evening, a rapid response was called after he had a CT PE study for possible PE. Once he arrived to the floor, his blood pressure dropped precipitously and patient was complaining of chest pain. He was stabilized and moved to the ICU. At that point, we were contacted by cardiology (Dr. Elizondo) noting that he had severe/wide-open aortic insufficiency and possible ascending aortic dissection. We were summoned to the intensive care unit right away as he became hypotensive and unstable. At that point, we started aggressively providing fluids, PRBC transfusion, and started pressors to stabilize him hemodynamically. Furthermore, we intubated him at that point as well. I contacted [facility] requesting transfer, but they would not accept transfer until CTA dissection study was performed. We were unable to perform a CT dissection study at that time due to hemodynamic instability and due to 2 ER trauma patient's occupying our CT scanner. I therefore contacted [facility] requesting transfer and they were unable to accommodate due to their CT surgeon being involved in a lung transplant at the moment. I then contacted [facility] requesting transfer, and they, too, requested CTA study to be performed before they can accommodate my request and/or allow me to talk to a CT surgeon. As I was awaiting phone call back from [facility], I asked my partner, Dr. Moore, to contact [facility] to request transfer as we were concerned there would be a delay in patient's care. At that point, [facility] and Dr. Stevens (?sp) accepted the patient in transfer. We are awaiting air transport to arrive to take patient to [place] for definitive diagnosis, care, and surgery as indicated. - Discharge Medications Prescriptions: No Action Quetiapine Fumarate [SEROquel] 450 mg PO HS Escitalopram [Lexapro] 20 mg PO HS BuPROPion SR (12 HR) [Wellbutrin SR] 150 mg PO QAM Gabapentin [Neurontin] 800 mg PO HS Gabapentin [Neurontin] 400 mg PO 0900,1700 Alprazolam [Xanax] 2 mg PO 0900,2100 Alprazolam [Xanax] 1 mg PO 1500 Home Medications: Escitalopram [Lexapro] 20 mg PO HS 03/18/19 [History] Quetiapine Fumarate [SEROquel] 450 mg PO HS 03/18/19 [History] Alprazolam [Xanax] 1 mg PO 1500 04/04/19 [History] Alprazolam [Xanax] 2 mg PO 0900,2100 04/04/19 [History] BuPROPion SR (12 HR) [Wellbutrin SR] 150 mg PO QAM 04/04/19 [History] Gabapentin [Neurontin] 400 mg PO 0900,1700 04/04/19 [History] Gabapentin [Neurontin] 800 mg PO HS 04/04/19 [History] Allergies/Adverse Reactions: Allergy/AdvReac Type Severity Reaction Status Date / Time Buspirone [From BuSpar] Allergy Itching Verified 05/07/15 16:01 codeine Allergy Itching Verified 05/07/15 16:01 infliximab [From Remicade] Allergy See Verified 06/30/15 19:36 Comments methadone [Methadone] Allergy See Verified 06/30/15 19:36 Comments Date of admission: 04/05/19 14:22 Primary care physician: Vasile Maguire Consults: 04/05/19 02:[address] Judge [CONS] Routine Reason for SW Consult: D/C planning Discharging clinician: Sanya Mcfarland Anticipated date of discharge: 04/05/19 - Constitutional Vitals: Temp Pulse Resp BP Pulse Ox 98.6 F 123 24 68/34 100 04/05/19 18:10 04/05/19 18:10 04/05/19 23:20 04/05/19 22:20 04/05/19 23:20 General appearance: Present: cachectic, cooperative, A&O X 3, answers questions appropriately Exam: intubated/sedated - Head Head exam: Present: normal inspection - Eye Eye exam: Absent: scleral icterus - ENT ENT exam: Present: mucous membranes dry - Neck Neck exam general surgery: Present: supple, trachea midline - Respiratory Respiratory exam: Present: CTAB. Absent: rales, rhonchi, wheezes - Cardiovascular Cardiovascular exam: Present: +S1, +S2, systolic murmur (grade 4), tachycardia - GI/Abdominal GI/Abdominal exam: Present: normal bowel sounds, soft. Absent: hepatomegaly, mass, splenomegaly, tenderness - Extremities Exam Extremities exam: Present: full ROM, radial pulses palpable and symmetrical. Absent: calf tenderness, normal capillary refill, tenderness, warm - Neurological Exam Additional comments: sedated - Skin Skin exam: Present: dry, intact, warm - Patient Status Disposition: Transfer Other Condition: Critical - Discharge Instructions Follow Up With: Johana Skelton DO [Primary Care Provider] -
[2019-04-06] MEDS ORDERED: *HR* Etomidate 20 MG/10 ML AMPUL IVP ONE (00:19)
[2019-04-06] MEDS ORDERED: *HR* Midazolam HCl 5 MG/5 ML VIAL IVP ONE (00:19)
[2019-04-06] MEDS ORDERED: *HR* Midazolam HCl 2 MG/2 ML VIAL IV ONE (00:19)
[2019-04-06] MEDS: ALPRAZolam 1 MG TABLET PO SCH (00:46)
[2019-04-06 01:11] VITALS: BP 81/49
--- NOTE | 2019-04-06 15:35 | Electrocardiograph Report ---
[address] [address] Test Date: 2019-04-05 Pat Name: Denton Yancey Department: 115 Room: 02 Gender: M Reel Slitter: : 1970 Requested By: Sanya Mcfarland Order Number: [id number] Reading MD: Ana Luisa Booth Measurements Intervals [place] Rate: 113 P: 50 MA: 155 QRS: -4 QRSD: 101 T: 32 QT: 341 QTc: 408 Interpretive Statements SINUS TACHYCARDIA ABNORMAL RHYTHM ECG Electronically Signed On 04-06-2019 15:34:05 EDT by Ana Luisa Booth
--- NOTE | 2019-04-06 15:36 | Electrocardiograph Report ---
[address] [place], [place] [address] Test Date: 2019-04-05 Pat Name: Denton Yancey Department: 115 Room: 02 Gender: M Cook Fruit: DONNELL : 1970 Requested By: Zeferino Armstrong Order Number: [id number] Reading MD: Ana Luisa Booth Measurements Intervals [place] Rate: 123 P: 68 NE: 166 QRS: -31 QRSD: 96 T: 91 QT: 219 QTc: 292 Interpretive Statements SINUS TACHYCARDIA MARKED LEFT AXIS DEVIATION MARKED ST DEPRESSION, CONSIDER SUBENDOCARDIAL INJURY Electronically Signed On 04-06-2019 15:34:29 EDT by Ana Luisa Booth
--- NOTE | 2019-04-08 16:31 | Electrocardiograph Report ---
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
--- NOTE | 2019-04-08 16:31 | Electrocardiograph Report ---
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
--- NOTE | 2019-04-09 21:11 | Electrocardiograph Report ---
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
== END 2019-04-06 00:20 | disposition other institution (70) | DRG 871 ==
LOC: 3ANU 17:53 → EMEROOARM 17:53 → SUATTDRO 21:51 → 3ANU 22:00 → ICNU 04-05 20:22
PROVIDERS: ADMIT Family Medicine; ATTEND Internal Medicine